=== PATIENT | female | born 1980 | race Caucasian/White ===

== ENCOUNTER 2016-05-25 08:59 | Emergency (ER) | payer MEDICAID, OTHER ==
[2016-05-25] MEDS ORDERED: Sodium Chloride 0.9% 1,000 ML IV ONE (09:42)
--- NOTE | 2016-05-25 10:07 | C.PDOC ---
History Of Present Illness 35 y/o female presents to the ED for evaluation of abdominal pain. She reports that she is 9 weeks , , LNMP 03/15/16. Patient states that she was seen at [facility] three weeks ago and had an ultrasound showing IUP and subchorionic hemorrhage. Patient denies any vaginal bleeding, fever, chest pain, shortness of breath, or other complaints. Time Seen by Provider: 05/25/16 09:09 Chief Complaint (Nursing): Abdominal Pain History Per: Patient History/Exam Limitations: no limitations Onset/Duration Of Symptoms: Days (21), Gradual, Persistent Current Symptoms Are (Timing): Still Present Radiation Of Pain To:: None Quality Of Discomfort: Cramping Exacerbating Factors: None Alleviating Factors: Rest Recent travel outside of the [place]: No Past Medical History Reviewed: Historical Data, Nursing Documentation, Vital Signs Vital Signs: Last Vital Signs Temp 97.5 F L 05/25/16 11:56 Pulse 93 H 05/25/16 11:56 Resp 18 05/25/16 11:56 BP 103/72 05/25/16 11:56 Pulse Ox 100 05/25/16 11:56 - Medical History PMH: No Chronic Diseases Surgical History: No Surg Hx Family History: States: No Known Family Hx - Social History Hx Tobacco Use: No Hx Alcohol Use: No Hx Substance Use: No - Immunization History Hx Influenza Vaccination: No Review Of Systems Except As Marked, All Systems Reviewed And Found Negative. Constitutional: Negative for: Fever Cardiovascular: Negative for: Chest Pain Respiratory: Negative for: Shortness of Breath Gastrointestinal: Positive for: Abdominal Pain Genitourinary: Negative for: Vaginal Bleeding Physical Exam - Physical Exam Appears: Non-toxic, No Acute Distress Skin: Normal Color, Warm, Dry Head: Atraumatic, Normacephalic Eye(s): bilateral: Normal Inspection, PERRL Oral Mucosa: Moist Neck: Normal ROM, Supple Chest: Symmetrical, No Tenderness Cardiovascular: Rhythm Regular Respiratory: Normal Breath Sounds, No Rales, No Rhonchi, No Wheezing Gastrointestinal/Abdominal: Soft, Tenderness (mild, lower abdomen), No Guarding , No Rebound Back: Normal Inspection, No CVA Tenderness Extremity: Normal ROM, No Tenderness, No Swelling Neurological/Psych: Oriented x3, Normal Speech, Normal Cognition ED Course And Treatment - Laboratory Results Result Diagrams: 05/25/16 10:14 05/25/16 10:14 Lab Interpretation: Normal Urine POC: Positive O2 Sat by Pulse Oximetry: 99 (ra) Pulse Ox Interpretation: Normal - CT Scan/US Ultrasound Other Rad Studies (CT/US): Read By Radiologist, Radiology Report Reviewed CT/US Interpretation: Accession No. : [id number]. Patient Name / ID : PRICILLA MARK / [id number]. Exam Date : 05/25/2016 10:02:18 ( Approved ). Study Comment : Sex / Age : F / 35Y. Creator : Delicia Wooten MD. Dictator : Delicia Wooten MD. Corporate Real Estate Specialist : Barbecue Cook : Delicia Wooten MD. Approver2 : Report Date : 05/25/2016 10:27:20. My Comment : . Indication: Bleeding. Comparison: None available. Technique: Transabdominal pelvic ultrasound. Findings: The uterus measures approximately 11.4 x 8.1 x 10 cm. Anteverted. Cervix length measures approximately 3.3 cm. There is a single intrauterine fetus present. 5 mm yolk sac. The crown-rump length measures 3.8 cm and is compatible with a gestational age of 10 weeks 5 days. There is heart motion which measured 161.1 BPM. The right ovary measures 2.8 x 1.4 x 2.7 cm. The left ovary measures 3.0 x 1.5 x 2.9 cm. Blood flow was demonstrated to both ovaries. Impression: Live single intrauterine with estimated gestational age 10 weeks 5 days by crown-rump length calculation. heart rate 161.1 bpm. Advise an anomaly screen at 16-18 weeks gestational age Progress Note: Ultrasound, Blood Work, Urinalysis, and Urine HCG were ordered. Patient was treated with IV Fluids. On re-evaluation abdomen soft, in no distress Reassessment Condition: Improved Disposition Counseled Patient/Family Regarding: Studies Performed, Diagnosis, Need For Followup - Disposition Referrals: [facility] [Outside] [facility] [Outside] Aries Reyes [Staff Provider] - Disposition: HOME/ ROUTINE Disposition Time: 11:30 Condition: GOOD Instructions: Abdominal Pain in (ED) - POA Present On Arrival: None - Clinical Impression Clinical Impression: Abdominal pain, - PA / ASSURANCE SENIOR MANAGER / Resident Statement MD/DO has reviewed & agrees with the documentation as recorded. - Scribe Statement The provider has reviewed the documentation as recorded by the Scribe (Zuleima Scott) All medical record entries made by the Scribe were at my direction and personally dictated by me. I have reviewed the chart and agree that the record accurately reflects my personal performance of the history, physical exam, medical decision making, and the department course for this patient. I have also personally directed, reviewed, and agree with the discharge instructions and disposition.
[2016-05-25 10:22] LABS: BASO # 0.1 K/uL (0.0-0.2); BASO % 1.2 % (0.0-2.0); EOS # 0.1 K/uL (0.0-0.7); EOS % 0.8 % (0.0-4.0); HEMATOCRIT 37.8 % (34.0-47.0); LYMPH # 1.7 K/uL (1.0-4.3); MEAN CELL VOLUME 84.5 fL (81.0-99.0); MEAN CORPUSCULAR HEMOGLOBIN 28.9 pg (27.0-31.0); MEAN CORPUSCULAR HGB CONC 34.2 g/dL (33.0-37.0); MEAN PLATELET VOLUME 10.3 fL (7.2-11.7); MONO # 0.6 K/uL (0.0-0.8); RED CELL DISTRIBUTION WIDTH 12.8 % (11.5-14.5); WHITE BLOOD COUNT 8.7 K/uL (4.8-10.8)
--- NOTE | 2016-05-25 10:29 | US ---
Indication: Bleeding Comparison: None available Technique: Transabdominal pelvic ultrasound. Findings: The uterus measures approximately 11.4 x 8.1 x 10 cm. Anteverted. Cervix length measures approximately 3.3 cm. There is a single intrauterine fetus present. 5 mm yolk sac. The crown-rump length measures 3.8 cm and is compatible with a gestational age of 10 weeks 5 days. There is heart motion which measured 161.1 BPM. The right ovary measures 2.8 x 1.4 x 2.7 cm. The left ovary measures 3.0 x 1.5 x 2.9 cm. Blood flow was demonstrated to both ovaries. Impression: Live single intrauterine with estimated gestational age 10 weeks 5 days by crown-rump length calculation. heart rate 161.1 bpm. Advise an anomaly screen at 16-18 weeks gestational age
[2016-05-25 10:33] LABS: RBC URINE 2 /hpf (0-3); URINE BACTERIA OCC (<OCC); URINE BILIRUBIN NEGATIVE (NEGATIVE); URINE BLOOD NEGATIVE (NEGATIVE); URINE COLOR Amber (YELLOW); URINE GLUCOSE (UA) NORMAL (Normal); URINE KETONE NEGATIVE (NEGATIVE); URINE LEUKOCYTE ESTERASE 3+ Leu/uL (Negative); URINE PROTEIN NEGATIVE (NEGATIVE); URINE UROBILINOGEN NORMAL mg/dL (0.2-1.0); WBC URINE 23 /hpf (0-5)
[2016-05-25] MEDS ORDERED: Sodium Chloride 0.9% 1,000 ML ONE (10:34)
[2016-05-25 10:37] LABS: CHLORIDE 97 mmol/L (98-107); POTASSIUM 3.4 mmol/L (3.6-5.2); SODIUM 137 mmol/L (132-148)
[2016-05-25 10:40] LABS: BLOOD UREA NITROGEN 8 mg/dL (7-17); CARBON DIOXIDE 21 mmol/L (22-30); GFR AFRICAN-AMERICAN > 60; GLUCOSE,RANDOM 83 mg/dL (65-105)
[2016-05-25 10:41] LABS: CALCIUM 9.4 mg/dl (8.6-10.4)
[2016-05-25 11:57] VITALS: BP 103/72; PULSE 93; RESP 18; TEMP 97.5
[2016-05-25 15:15] VITALS: O2SAT 99
== END 2016-05-25 11:57 | disposition home or self-care (01) ==
LOC: C.ER 08:59
DX: O26.891 Other specified pregnancy related conditions, first trimester (principal); R10.30 Lower abdominal pain, unspecified; Z3A.09 9 weeks gestation of pregnancy
CPT/HCPCS: 76801; 80048; 81001; 84702; 84703; 85025; 86850; 86900; 96360; 99284; J7040

== ENCOUNTER 2016-08-23 09:36 | Emergency (ER) | payer MEDICAID ==
[2016-08-23 10:01] VITALS: BMI 25.4
[2016-08-23 10:08] VITALS: BP 104/72; PULSE 102; RESP 18; TEMP 97.8; O2SAT 97
--- NOTE | 2016-08-23 10:27 | C.PDOC ---
History Of Present Illness 35 y/o female presents to the ED with complaints of bilateral ear and nasal congestion x3 weeks. Pt currently , 1st . History of ear wax impaction. Denies fever, chills, vomiting, sore throat, vaginal bleeding or any other complaints. Time Seen by Provider: 08/23/16 10:20 Chief Complaint (Nursing): ENT Problem History Per: Patient History/Exam Limitations: None Onset/Duration Of Symptoms: Days Current Symptoms Are (Timing): Still Present Symptoms Have Been: Continuous Severity: Mild Anticoagulant/Antiplatlet Use?: No Past Medical History Reviewed: Historical Data, Nursing Documentation, Vital Signs Vital Signs: Last Vital Signs Temp 97.8 F 08/23/16 10:02 Pulse 102 H 08/23/16 10:02 Resp 18 08/23/16 10:02 BP 104/72 08/23/16 10:02 Pulse Ox 97 08/23/16 10:27 Family History: States: Unknown Family Hx - Social History Hx Tobacco Use: No Hx Alcohol Use: No Hx Substance Use: No - Immunization History Hx Tetanus Toxoid Vaccination: Yes Hx Influenza Vaccination: No Hx Pneumococcal Vaccination: No Review Of Systems Except As Marked, All Systems Reviewed And Found Negative. Constitutional: Negative for: Fever ENT: Positive for: Other (bilateral ear and nasal congestion). Negative for: Throat Pain Respiratory: Negative for: Cough Gastrointestinal: Negative for: Vomiting Genitourinary: Negative for: Vaginal Bleeding Physical Exam - Physical Exam Appears: Non-toxic, No Acute Distress Skin: Warm, Dry, No Rash Head: Atraumatic, Normacephalic Ear(s): Bilateral: Normal (bilateral ear canal and TM normal) Nose: Other (mild nasal congestion and erythema) Oral Mucosa: Moist Throat: Normal, No Erythema, No Exudate Chest: Symmetrical Cardiovascular: Rhythm Regular, No Murmur Respiratory: Normal Breath Sounds, No Rales, No Rhonchi, No Wheezing Gastrointestinal/Abdominal: Other (gravid) Extremity: Bilateral: Atraumatic Neurological/Psych: Oriented x3, Normal Speech ED Course And Treatment O2 Sat by Pulse Oximetry: 97 (room air) Pulse Ox Interpretation: Normal Medical Decision Making Medical Decision Makin weeks nasal and b/l congestion, no s/s of infection consider typical nasal congestion in Explained: unable to prescribe decongestants in . Disposition Doctor Will See Patient In The: Office Counseled Patient/Family Regarding: Studies Performed, Diagnosis - Disposition Referrals: Aries Reyes [Staff Provider] - [facility] [Primary Care Provider] - Disposition: HOME/ ROUTINE Disposition Time: 10:26 Condition: GOOD Additional Instructions: typical nasal and ear congestion in pregancy consider supportive treatment as approved by your OBGYN Forms: General Discharge Instructions - Clinical Impression Clinical Impression: Nasal congestion - Scribe Statement The provider has reviewed the documentation as recorded by the Joe Babcock Provider Attestation: All medical record entries made by the Joe were at my direction and personally dictated by me. I have reviewed the chart and agree that the record accurately reflects my personal performance of the history, physical exam, medical decision making, and the department course for this patient. I have also personally directed, reviewed, and agree with the discharge instructions and disposition.
== END 2016-08-23 10:36 | disposition home or self-care (01) ==
LOC: SUPCPDRO 09:36 → C.ER 09:36
DX: R09.81 Nasal congestion (principal)

== ENCOUNTER 2016-08-25 10:23 | Emergency (ER) | payer MEDICAID ==
[2016-08-25 10:28] VITALS: BMI 23.3
[2016-08-25] MEDS ORDERED: Lactated Ringer's 1,000 ML IV SCH (10:30)
--- NOTE | 2016-08-25 10:42 | OBHP ---
Datetime: 08/25/2016 10:38 IP Adm Impression: , intrauterine IP Chief Complaint Other: bleeding after pap smear. n/v Admit Comment, IP Provider: at 26weeks send from clinic for bleeding after pap smaer. pt start ed vomited and passed out, no pain no lof,+fm obhx primi pmh de med pnv all nkda psh de soch den a/p at 26+weeks vb after pap cbc/ua npo/ivf cont kamaljit and efm cont close observation Pelvic Type - PN: Adequate Extremities - PN: Normal Abdomen - PN: Normal Back - PN: Normal Breast - PN: Not Done Lungs - PN: Normal Heart - PN: Normal Thyroid - PN: Not Done Neurologic - PN: Normal HEENT - PN: Normal General - PN: Normal Comments, ACOG Physical Exam: gravid,non tender ext no edema,no calf ten sse min blodf, cervix closed Genitourinary Exam: Normal DTRs - PN: Normal
[2016-08-25 11:54] LABS: MEAN CORPUSCULAR HEMOGLOBIN 29.9 pg (27.0-31.0); MEAN CORPUSCULAR HGB CONC 33.6 g/dL (33.0-37.0); MEAN PLATELET VOLUME 9.4 fL (7.2-11.7); RBC 3.52 Mil/uL (3.80-5.20); RED CELL DISTRIBUTION WIDTH 13.1 % (11.5-14.5); WHITE BLOOD COUNT 11.6 K/uL (4.8-10.8)
[2016-08-25 12:06] LABS: HEMOGLOBIN 10.5 g/dL (11.0-16.0)
[2016-08-25 12:07] LABS: MEAN CELL VOLUME 88.9 fL (81.0-99.0)
== END 2016-08-25 12:15 | disposition home or self-care (01) ==
LOC: C.EROB 10:23
DX: O46.8X2 Other antepartum hemorrhage, second trimester (principal); Z3A.26 26 weeks gestation of pregnancy
CPT/HCPCS: 85027; 99283; J7120

== ENCOUNTER 2016-12-07 12:43 | Inpatient (IN) | payer MEDICAID ==
[2016-10-26 08:32] VITALS: BMI 28.3
[2016-12-07] MEDS: Lactated Ringer's 1,000 ML IV SCH (20:15)
[2016-12-07 21:12] LABS: BASO % 0.3 % (0.0-2.0); EOS % 0.4 % (0.0-4.0); HEMATOCRIT 34.1 % (34.0-47.0); LYMPH % 21.1 % (20.0-40.0); MEAN CELL VOLUME 82.4 fL (81.0-99.0); MEAN CORPUSCULAR HEMOGLOBIN 27.5 pg (27.0-31.0); MEAN CORPUSCULAR HGB CONC 33.4 g/dL (33.0-37.0); MEAN PLATELET VOLUME 10.7 fL (7.2-11.7); MONO # 0.6 K/uL (0.0-0.8); MONO % 6.1 % (0.0-10.0); NRBC % 0.1 % (0.0-2.0); RED CELL DISTRIBUTION WIDTH 14.6 % (11.5-14.5); WHITE BLOOD COUNT 9.5 K/uL (4.8-10.8)
[2016-12-07 21:19] LABS: RBC URINE 1 /hpf (0-3); URINE BACTERIA OCC (<OCC); URINE BILIRUBIN NEGATIVE (NEGATIVE); URINE BLOOD NEGATIVE (NEGATIVE); URINE COLOR Straw (YELLOW); URINE GLUCOSE (UA) NORMAL (Normal); URINE KETONE NEGATIVE (NEGATIVE); URINE LEUKOCYTE ESTERASE TRACE Leu/uL (Negative); URINE PROTEIN NEGATIVE (NEGATIVE); URINE UROBILINOGEN NORMAL mg/dL (0.2-1.0); WBC URINE 5 /hpf (0-5)
[2016-12-07 21:22] LABS: CHLORIDE 100 mmol/L (98-107); POTASSIUM 4.1 mmol/L (3.6-5.2); SODIUM 130 mmol/L (132-148)
[2016-12-07 21:24] LABS: GFR AFRICAN-AMERICAN > 60
[2016-12-07 21:25] LABS: ALB/GLOB RATIO 1.3 (1.0-2.1); ALKALINE PHOSPHATASE 272 U/L (38-126); ALT/SGPT 27 U/L (9-52); AST/SGOT 24 U/L (14-36); BILIRUBIN,TOTAL 0.3 mg/dL (0.2-1.3); BLOOD UREA NITROGEN 11 mg/dL (7-17); CALCIUM 8.5 mg/dl (8.6-10.4); CARBON DIOXIDE 18 mmol/L (22-30); GLUCOSE,RANDOM 115 mg/dL (65-105); TOTAL PROTEIN 6.7 g/dL (6.3-8.3)
--- NOTE | 2016-12-07 22:23 | OBADHP ---
Datetime: 12/07/2016 21:10 Admit Comment, IP Provider: chief complaint-induction of labor HPI 36 y/o at 39.3 wga here for induction of labor.patient states that she feels some contrac tions course care withsydney tuttle; ani PMH denies PSH denies OBGYN HX Socila hx denies tobacco,alcohol or illicit drug use Exam see exam section A/P 36 y/o at 39.3 wga here for induction of labor.Found to be in early labor -admit plan of care as per dr tuttle Pelvic Type - PN: Adequate Extremities - PN: Normal Abdomen - PN: Normal Back - PN: Normal Lungs - PN: Normal Heart - PN: Normal Neurologic - PN: Normal General - PN: Normal Weight - Estimated: 3200 Presentation-Admit: Vertex Contraction Comments Provider: every 1-2min Gestation - Est Wks by US: 39.3 IP Hx Assessment: The History has been Reviewed and is Current Vital Signs Provider: Reviewed IP Chief Complaint: Scheduled induction of labor FHR Category Provider Fetus A: Category I Dilatation, Provider: 3-4 Effacement, Provider: 80 Station, Provider: -2 Genitourinary Exam: Normal DTRs - PN: Normal EGA AdmitDate IP: 39.3 IP Adm Impression: Term, intrauterine ; Active labor IP Admit Plan: Admit to unit; Initiate labor protocol Datetime: 08/25/2016 10:38 IP Chief Complaint Other: bleeding after pap smear. n/v Breast - PN: Not Done Thyroid - PN: Not Done HEENT - PN: Normal Comments, ACOG Physical Exam: gravid,non tender ext no edema,no calf ten sse min blodf, cervix closed
[2016-12-08] MEDS ORDERED: Bupivacaine HCl 0.25% PF (10 ml) Inj ONE ×3 (01:33→19:25)
[2016-12-08] MEDS ORDERED: Bupivacaine 0.125%/FentaNYL 200 ML EPI ONE (01:33)
[2016-12-08] MEDS ORDERED: Oxytocin 30 UNIT 30 UNITS/500 ML BAG IV ONE (09:12)
[2016-12-08] MEDS ORDERED: Oxytocin 30 UNIT 30 UNITS/500 ML BAG IV SCH (09:15)
--- NOTE | 2016-12-08 14:37 | OBPN ---
Datetime: 12/08/2016 11:19 IP Progress Impression: Normal progression of labor IP Procedures: Artificial ROM IP Progress Plan: Continue present management; Anticipate Vaginal Delivery Membranes, Provider: Ruptured Amniotic Fluid Color, Provider: Clear FHR - Baseline A Provider: 150 IP Progress Note Comment: Patient seen and examined at bedside. Patient is resting comfortably, feel ing pressure. Patient was artificially ruptured at 11:12am, large amount of clear fluid. Continue pre sent management. Dominique Krishna DO PGY-1 Examined Pt with Resident and agrees with the above. Vital Signs Provider: Reviewed FHR Category Provider Fetus A: Category I NICHD Variability Prov Fetus A: Moderate 6-25bpm Dilatation, Provider: 6 Effacement, Provider: 90 Station, Provider: -2 NICHD Decel Fetus A IP Provider: None Datetime: 12/07/2016 21:10 Contraction Comments Provider: every 1-2min Gestation - Est Wks by US: 39.3 Weight - Estimated: 3200 Presentation-Admit: Vertex
[2016-12-08] MEDS ORDERED: Lidocaine 2% MPF (5 ml) Inj ONE ×2 (18:21→20:12)
[2016-12-08] MEDS ORDERED: cefOXitin IV 2 gm in Dextrose 2 GM/50 ML BAG IVPB ONE ×2 (18:24→18:25)
[2016-12-08] MEDS ORDERED: Sodium Citrate/Citric Acid 15 ml Sol PO ONE (18:24)
--- NOTE | 2016-12-08 18:25 | OBPN ---
Datetime: 12/08/2016 18:17 IP Progress Impression: Arrest of dilatation/descent; Reassuring heart rate IP Informed Consent Obtain: Section Delivery IP Procedures: Sterile Vag Exam IP Progress Plan: Deliver- Section Membranes, Provider: Ruptured FHR - Baseline A Provider: 150 Gestation - Est Wks by US: 39.4 Presentation-Admit: Vertex IP Progress Note Comment: IUP at 39wks in Labor Lack of progress with cervicaal stasis at 5-6cm despite adequate contractions. Cx- 5-6/50/-2 Assessment : IUP at term in Labor with Cervical Stasis Plan: Deliver by Cesraean Section. Vital Signs Provider: Reviewed NICHD Accel Fetus A IP Provider: 15X15 NICHD Variability Prov Fetus A: Moderate 6-25bpm Dilatation, Provider: 5-6 Effacement, Provider: 50 Station, Provider: -2 NICHD Decel Fetus A IP Provider: None
[2016-12-08] MEDS ORDERED: Sodium Citrate/Citric Acid 15 ml Sol ONE (18:26)
[2016-12-08] MEDS ORDERED: Oxytocin 20 units in LR 2,000 ML IV ONE (18:26)
[2016-12-08] MEDS ORDERED: Morphine 1 mg/ml preservative-free Inj(Duramorph) ONE (18:32)
--- NOTE | 2016-12-08 20:23 | OBDS ---
DELIVERY PERSONNEL Delivery Doctor: Hilda Reyes MD Scrub Nurse: Denise Gibbons OBT Tree Climber: Opal Gonzalez RN Anesthesiologist: MATERNAL INFORMATION Delivery Anesthesia: Epidural Medications in Delivery: pitocin 20units Placenta Cultured: No Maternal Complications: None Provider Comments: Uncomplicated Primary Delivery of a viable male with BW of 8 Ibs 10oz and score of 9 and 9. LABOR SUMMARY EDC: 12/11/2016 00:00 No. Babies in Womb: 1 Attempted: No Labor Anesthesia: Epidural LABOR INFORMATION Onset of Labor: 12/08/2016 06:35 Other Ripening Agents: n/a Oxytocin: Augmentation Group B Beta Strep: Negative Steroids Given: None Reason Steroids Not Administered: Not Applicable MEMBRANES Membranes Rupture Method: Artificial Rupture of Membranes: 12/08/2016 11:12 Length of Rupture (hrs): 8.52 Amniotic Fluid Color: 1+4 Amniotic Fluid Amount: Large Amniotic Fluid Odor: Normal STAGES OF LABOR Stage 3 hrs: 0 Stage 3 min: 1 Total Time in Labor hrs: 13 Total Time in Labor min: 9 VAGINAL DELIVERY Episiotomy: None Laceration Extension: N/A Laceration Type: None Laceration Repair: Not Applicable Sharps Count Correct: N/A CSECTION DELIVERY Primary Indication: Arrest of Descent Secondary Indication: Failed Induction CSection Urgency: Elective CSection Incidence: Primary Labor: Labor Elective: Elective CSection Incision: Lower Uterine Transverse Uterine Closure: Double-layer closure BABY A INFORMATION Infant Delivery Date/Time: 12/08/2016 19:43 Method of Delivery: Born in Route : No : N/A Forceps: N/A Vacuum Extraction: N/A Shoulder Dystocia : No SHOULDER DYSTOCIA BABY A Infant Delivery Date/Time: 12/08/2016 19:43 PRESENTATION/POSITION BABY A Presentation: Cephalic Cephalic Presentation: Vertex Breech Presentation: N/A PLACENTA INFORMATION BABY A Placenta Delivery Time : 12/08/2016 19:44 Placenta Method of Delivery: Manual Removal Placenta Status: Delivered SCORES BABY A Heart Rate 1 min: >100 bpm Resp Effort 1 min: Good Cry Reflex Irritability 1 min: Cough or Sneeze or Pulls Away Muscle Tone 1 min: Active Motion Color 1 min: Body Seat Pleasant, Extremities Blue SCORE 1 MIN: 9 Heart Rate 5 min: >100 bpm Resp Effort 5 min: Good Cry Reflex Irritability 5 min: Cough or Sneeze or Pulls Away Muscle Tone 5 min: Active Motion Color 5 min: Body Seat Pleasant, Extremities Blue SCORE 5 MIN: 9 INFANT INFORMATION BABY A Gestational Age at Delivery: 39.4 Gestational Status: Term Infant Outcome : Liveborn Condition : Stable Infant Sex: Male IDENTIFICATION/MEDS BABY A ID Band Number: [id number] ID Band Location: Right Leg; Right Arm Sensor Applied: Yes Sensor Number: [id number] Sensor Location : Cord Clamp Vitamin K Given : Not Given Erythromycin Given: Not Given WEIGHT/LENGTH BABY A Birthweight (gms): 3920 Weight (lb): 8 Weight (oz): 10 Infant Length Inches: 20.50 Infant Length cms: 52.1 CORD INFORMATION BABY A No. Cord Vessels: 3 Nuchal Cord : N/A Cord Blood Taken: Yes Suction: None ASSESSMENT BABY A Complications: None Physical Findings at Delivery: Within Normal Limits Respirations: Appears Normal University Manager/ALS Called : No Care By: Transferred To: Remains with Mother
--- NOTE | 2016-12-08 20:27 | PCM.SURG1 ---
Surgeon's Initial Post Op Note - Surgeon's Notes Surgeon: Dr Reyes Gerontological Nurse Practitioner: Dr Patterson, Ondina Wells Type of Anesthesia: Spinal Anesthesia Administered By: Dr Sanchez Pre-Operative Diagnosis: IUP at 39wks in Labor, Arrest of cervical Dilatation Operative Findings: Live Male BW of 8Ibs 10oz , scores of 9 and 9 delivered in the left Occipitoposterior position, fundal placenta, clear amniotic fluid. Normal Uterus, fallopian tubes and ovaries. EBL- 500mls. IVF -1300mls. Urine Output- 200mls Post-Operative Diagnosis: Arrest of cervical dilatation due to left occipitoposterior positioning Operation Performed: Primary Transverse section Specimen/Specimens Removed: None Estimated Blood Loss: EBL {In ML}: 500 Post-Op Condition: Good Date of Surgery/Procedure: 12/08/16 Time of Surgery/Procedure: 20:29
[2016-12-08] MEDS ORDERED: cefOXitin IV 2 gm in Dextrose 2 GM/50 ML BAG IVPB SCH (21:00)
[2016-12-09] MEDS: Simethicone 80 mg Chewtab PO SCH ×5 (00:28→22:24)
[2016-12-09] MEDS: cefOXitin IV 2 gm in Dextrose 2 GM/50 ML BAG IVPB SCH ×2 (03:32→10:38)
--- NOTE | 2016-12-09 07:37 | OP ---
PROCEDURE DATE: 12/08/2016 PREOPERATIVE DIAGNOSIS: Intrauterine at 39 weeks in labor with arrest of cervical dilatation. POSTOPERATIVE DIAGNOSIS: Intrauterine at 39 weeks in labor with arrest of cervical dilatation due to left occipitoposterior positioning. PROCEDURE DONE: A primary low-transverse section, performed of 12/08/2016. SURGEON: Aries Reyes MD ONLINE PROJECT MANAGER: Dr. Yesenia M.D., Ondina Wells ([facility] residents). TYPE OF ANESTHESIA: Spinal. ANESTHESIA ADMINISTERED BY: Dr. Sanchez. OPERATIVE FINDINGS: A live male with weight of 8 pounds 10 ounces, scores 9 in the first and fifth minutes respectively. Delivered in a left occipitoposterior positioning. There was edema of the bladder. The placenta was fundal with clear amniotic fluid. The uterus as well as the fallopian tubes and bilateral ovaries appeared normal. ESTIMATED BLOOD LOSS: 500 mL. INTRAVENOUS FLUID INTAKE: 1300 mL. URINE OUTPUT: 200 mL of clear urine at the end of procedure. COMPLICATIONS: There were no complications. DESCRIPTION OF PROCEDURE: After obtaining informed consent, the patient was sent to the OR with IV running and Ferguson catheter in place. The patient already had an epidural anesthesia in place and was placed in a supine position on the OR table. The epidural anesthesia was topped up by the tool and equipment rental clerk and once anesthesia was found to be complete, the patient was prepped and draped in the usual sterile fashion. A Pfannenstiel skin incision was made about 2.5 cm from the pubic symphysis using a scalpel and this incision was extended through the subcutaneous tissues, so the rectus fascia was identified. A transverse incision was made in the rectus fascia using a Bovie device and this was extended to both sides in a manual fashion. The rectus fascia was from the underlying rectus muscles both superiorly and inferiorly by means of blunt dissection and sharp dissection. The rectus muscle was in the midline to expose the peritoneum which was carefully tented between two Lana clamps and sharply entered with Metzenbaum scissors and with good visualization of the bladder. Once abdominal cavity was entered, the vesicouterine fold of peritoneum was identified and was found to be quite edematous. This was incised in a transverse fashion and retracted inferiorly to expose the lower uterine segment. A low-transverse incision was made using a scalpel and this was sent through the myometrial layer, so the underlying amniotic membranes were seen. The incision was extended both sides in a blunt fashion. The baby which was at this point seem to be the left occipitoposterior positioning was identified and delivered. Baby cried immediately after . The mouth and nostrils were bulb suctioned. The three-vessel cord was clamped and cut and given to the nurse. Umbilical cord blood was obtained and the placenta was manually removed from the uterine cavity. The uterus was then brought out of the abdominal cavity and then the intrauterine cavity cleaned of all debris using dry laparotomy pads. The uterine incision was then closed in two layers using Vicryl #4. The first layer in a running locked fashion, the second layer in a running fashion imbricating the first layer. This was done until hemostasis had been noted. Irrigation of the pelvis was done with warm normal saline. After which, the uterus was returned into the abdominal cavity. All instruments and laparotomy pads were removed and attention was turned to the anterior abdominal wall which was closed in layers with 2-0 Vicryl for the peritoneum and the rectus muscles. The rectus fascia was reapproximated using Vicryl #4. The subcutaneous tissue was brought together by means of #2-0 plain catgut. The skin was closed in a subcuticular fashion using #4-0 Vicryl. All counts of instruments, laparotomy pads and needles used were correct x3 and the patient was sent to the recovery room awake and in stable condition. Aries Reyes MD JEZ
[2016-12-09 08:33] LABS: HEMATOCRIT 29.4 % (34.0-47.0); MEAN CELL VOLUME 82.8 fL (81.0-99.0); MEAN CORPUSCULAR HEMOGLOBIN 28.3 pg (27.0-31.0); MEAN CORPUSCULAR HGB CONC 34.3 g/dL (33.0-37.0); MEAN PLATELET VOLUME 10.5 fL (7.2-11.7); WHITE BLOOD COUNT 8.2 K/uL (4.8-10.8)
[2016-12-09] MEDS: Oxycodone/Acetaminophen 5/325 mg Tab PO PRN ×3 (09:56→22:21)
[2016-12-09] MEDS: Lactated Ringer's 1,000 ML IV SCH (10:43)
[2016-12-09] MEDS ORDERED: Bisacodyl 5mg EC Tab PO ONE (20:56)
[2016-12-10 08:48] VITALS: O2SAT 98
[2016-12-10] MEDS: Simethicone 80 mg Chewtab PO SCH ×4 (09:48→21:21)
[2016-12-10] MEDS: Oxycodone/Acetaminophen 5/325 mg Tab PO PRN ×2 (09:51→20:31)
[2016-12-11] MEDS ORDERED: Influenza Vaccine 60 mcg/0.5 mL SYR (4YR UP) IM ONE (09:26)
[2016-12-11] MEDS: Simethicone 80 mg Chewtab PO SCH (09:27)
[2016-12-11 16:53] VITALS: BP 100/75; PULSE 90; RESP 18; TEMP 98.1
--- NOTE | 2016-12-11 23:27 | OBPPN ---
Datetime: 12/11/2016 08:46 PP Pain Prov: Within normal limits PP Nausea Prov: Denies PP Flatus Prov: Yes PP BM Prov: No PP Heart Prov: Normal PP Lungs Prov: Normal PP Abdomen/Uterus Prov: Normal PP Lochia Prov: Normal PP Vulva/Perineum Prov: Normal PP Extremities Prov: Normal PP C/S Incision Prov: Normal PP Progress Prov: Normal PP Impression Prov: Normal progression PP Plan Prov: Continue present management; Discharge Vital Signs Provider PP: Reviewed; Within Normal Limits Datetime: 12/10/2016 15:36 PP Progress Note Prov: Patient seen and examined at bedside. Patient reports that she is doing well and her pain is well-controlled. Patient has been out of bed, tolerating diet and passing flatus. Pat ient admits to mild lochia. Patient denies chest pain, SOB, palpitations, fever, chills, nausea, elver l movement and calf tenderness. Patient is breast feeding VS: BP: 94/60 HR 82 Temp 97.8 Physical Examination Gen: AAOx3, NAD CV: RRR, Normal S1, S2 Lungs: CTA B/L Abd: soft, appropriately tender, fundus firm above umbilicus, dressing c/d/i Ext: No clubbing, cyanosis, edema; no calf tenderness Labs: 9.5>11.4/34.1<193 8.2>10.1/29.4<121 O positive Rubella immune A/P: 36 year old at 39w4d s/p PLTCD 2/2 arrest of descent POD#2 1. Stable, afebrile 2. Pain control - motrin and percocet prn 3. Encourage ambulation 4. Encourage breast feeding, ISS use, hydration 5. Male - desires circ 6. Continue routine post care 7. Anticipate discharge tomorrow 8. Plan d/w attending Mina Bravo, PGY-1, DO Pt was discussed with the resident and I agree with the above
--- NOTE | 2016-12-11 23:36 | OBDCSUM ---
Datetime: 12/11/2016 09:57 Discharge Instructions, Provider: Routine instructions given Discharge Diagnosis, Provider: Term Delivered Contraception discussed, Prov: Yes Discharge Comment, Provider: S/P Uncomplicated Section, Clinically stable Discharge Diagnosis Prov Other: S/P Uncomplicated Section, Clinically stable
--- NOTE | 2016-12-11 23:36 | OBPPN ---
Datetime: 12/11/2016 08:46 PP Progress Note Prov: Patient seen and examined at bedside. Per nursing, no acute events overnight. Patient is doing well, pain is controlled. Patient is ambulating and tolerating diet. Lochia is mild . Passing flatus, denies BM. Breast feeding. Denies headaches, dizziness, cp, palpitations, sob, urin ileana symptoms. VS: BP 100/75 HR 90 Temp 98.1 Gen: AAOx3, NAD CV: RRR Lungs: CTA B/L Abd: soft, appropriately tender, fundus firm below umbilicus, incision c/d/i with suture Ext: No clubbing, cyanosis, edema; no calf tenderness Labs: 9.5>11.4/34.1<193 8.2>10.1/29.4<121 O Positive Rubella immune A/P: 36 year old at 39.4 weeks s/p PLTCD 2/2 arrest of descent POD#3 1. Stable, afebrile 2. Pain control - percocet and motrin prn 3. Encourage ambulation and hydration 4. Encourage breast feeding 5. Continue routine post care 6. Anticipate d/c home today - pelvic rest x 6 weeks, f/u with office in 1-2 weeks for incision ch kadeem 7. Plan d/w attending Dominique Krishna DO PGY-1. Pt discussed with the resident and agrees with the above.
== END 2016-12-11 12:50 | disposition home or self-care (01) | DRG 371 ==
LOC: C.4D 19:47 → C.4M 12-08 23:00
PROVIDERS: ADMIT Obstetrics & Gynecology; ATTEND Obstetrics & Gynecology
PROC: 3E0P7VZ Introduction of Hormone into Female Reproductive, Via Natural or Artificial Opening (ICD-10-PCS; 2016-12-07)
PROC: 10D00Z1 Extraction of Products of Conception, Low, Open Approach (ICD-10-PCS; principal; 2016-12-08)
DX: O64.0XX0 Obstructed labor due to incomplete rotation of fetal head, not applicable or unspecified (principal); O61.9 Failed induction of labor, unspecified; O62.1 Secondary uterine inertia; O62.0 Primary inadequate contractions; Z3A.39 39 weeks gestation of pregnancy; Z37.0 Single live birth

== ENCOUNTER 2017-04-04 09:34 | Emergency (ER) | payer MEDICAID, SELFPAY ==
[2017-04-04 09:34] VITALS: BMI 28.3
[2017-04-04 09:49] VITALS: BP 115/77; PULSE 88; RESP 18; TEMP 97.7; O2SAT 100
--- NOTE | 2017-04-04 11:10 | C.PDOC ---
History Of Present Illness 36 y/o female presents to ED for evaluation on foreign body to left ear. Patient states she was cleaning ear and q tip cotton stuck in ear, tried to remove it but couldn't which prompted visit to ED. Patient denies trauma, injury , hearing changes or any other complaints at this time. Time Seen by Provider: 04/04/17 10:13 Chief Complaint (Nursing): ENT Problem History Per: Patient History/Exam Limitations: None Onset/Duration Of Symptoms: Hrs Current Symptoms Are (Timing): Still Present Quality (Ear): Foreign Body Past Medical History Reviewed: Historical Data, Nursing Documentation, Vital Signs Vital Signs: Last Vital Signs Temp 97.7 F 04/04/17 09:45 Pulse 88 04/04/17 09:45 Resp 18 04/04/17 09:45 BP 115/77 04/04/17 09:45 Pulse Ox 100 04/04/17 11:12 - Medical History PMH: No Chronic Diseases Surgical History: No Surg Hx - [facility] (12/07/16) EXTRACTION OF POC, LOW CERVICAL, OPEN APPROACH (12/07/16) Family History: States: No Known Family Hx - Social History Hx Tobacco Use: No Hx Alcohol Use: No Hx Substance Use: No - Immunization History Hx Tetanus Toxoid Vaccination: Yes Hx Influenza Vaccination: No Hx Pneumococcal Vaccination: No Review Of Systems Except As Marked, All Systems Reviewed And Found Negative. ENT: Positive for: Ear Pain Physical Exam - Physical Exam Appears: Non-toxic, No Acute Distress Skin: Warm, Dry, No Rash Head: Atraumatic, Normacephalic Eye(s): bilateral: Normal Inspection Ear(s): Left: Other (cotton tip in ear), Right: Normal Nose: Normal Oral Mucosa: Moist Throat: Normal, No Erythema, No Exudate Neck: Normal ROM, Supple Cardiovascular: Rhythm Regular Respiratory: Normal Breath Sounds, No Rales, No Rhonchi, No Wheezing Neurological/Psych: Oriented x3 ED Course And Treatment O2 Sat by Pulse Oximetry: 100 (RA) Pulse Ox Interpretation: Normal Medical Decision Making Medical Decision Making: Assessment: Left ear foreign body Procedure: 200ml saline, removal of foreign body to left ear. Patient tolerated well Progress: TM evaluated post procedure no infection noted Patient discharged home Disposition - Disposition Referrals: [facility] [Outside] Disposition: HOME/ ROUTINE Disposition Time: 11:15 Condition: STABLE Additional Instructions: follow up with your doctor in 2 days call to make an appointment take medications as prescribed return to ED if symptoms worsens or progress Instructions: Foreign Body in Ear, Child Forms: [facility] (Togolese) - Clinical Impression Clinical Impression: Foreign body - Scribe Statement The provider has reviewed the documentation as recorded by the Eulogioiballison Campbell All medical record entries made by the Joe were at my direction and personally dictated by me. I have reviewed the chart and agree that the record accurately reflects my personal performance of the history, physical exam, medical decision making, and the department course for this patient. I have also personally directed, reviewed, and agree with the discharge instructions and disposition.
== END 2017-04-04 10:52 | disposition home or self-care (01) ==
LOC: C.ER 09:34
DX: T16.2XXA Foreign body in left ear, initial encounter (principal); X58.XXXA Exposure to other specified factors, initial encounter; Y93.E8 Activity, other personal hygiene; Y92.89 Other specified places as the place of occurrence of the external cause